=== PATIENT | male | born 1970 | race Caucasian/White ===

== ENCOUNTER 2021-11-06 08:09 | Day surgery (SDC) | payer BC ==
[2021-11-03 15:39] VITALS: BMI 27.9
[2021-11-06] MEDS ORDERED: LIDOCAINE HCL 2% 100 MG/5 ML DISP.SYRIN ONE (09:30)
[2021-11-06] MEDS ORDERED: PROPOFOL 20 ML ONE (09:31)
[2021-11-06] MEDS ORDERED: MIDAZOLAM HCL 2 MG/2 ML SINGLE DOSE VIAL ONE (09:32)
[2021-11-06] MEDS ORDERED: BUPIVACAINE HCL/PF 2.5 MG/ML - 30 ML VIAL IJ ONE (09:48)
[2021-11-06] MEDS ORDERED: KETOROLAC TROMETHAMINE 30 MG/1 ML VIAL ONE (10:02)
[2021-11-06] MEDS ORDERED: DEXAMETHASONE SOD PHOSPHATE 4 MG/1 ML VIAL ONE (10:02)
[2021-11-06] MEDS ORDERED: ONDANSETRON 4 MG/2 ML VIAL ONE (10:02)
[2021-11-06] MEDS ORDERED: ceFAZolin SODIUM 1 GM VIAL ONE (10:02)
[2021-11-06] MEDS ORDERED: ONDANSETRON 4 MG/2 ML VIAL IVPUSH PRN (10:43)
[2021-11-06] MEDS ORDERED: oxyCODONE HCL 5 MG TABLET PO PRN ×2 (10:43)
[2021-11-06] MEDS ORDERED: PROMETHAZINE HCL 25 MG/1 ML VIAL IVPUSH PRN (10:43)
[2021-11-06] MEDS ORDERED: LACTATED RINGERS SOLUTION 1,000 ML IV SCH (10:45)
[2021-11-06 11:47] VITALS: RESP 20; TEMP 97.4
[2021-11-06 12:06] VITALS: BP 120/69; PULSE 60
== END 2021-11-06 12:05 | disposition home or self-care (01) ==
LOC: FASU 08:09
PROVIDERS: ATTEND Orthopaedic Surgery
PROC: 0SBD4ZZ Excision of Left Knee Joint, Percutaneous Endoscopic Approach (ICD-10-PCS; principal; 2021-11-06 10:14)
DX: S83.242A Other tear of medial meniscus, current injury, left knee, initial encounter (principal); S83.282A Other tear of lateral meniscus, current injury, left knee, initial encounter; S83.8X2A Sprain of other specified parts of left knee, initial encounter; M65.862 Other synovitis and tenosynovitis, left lower leg; X58.XXXA Exposure to other specified factors, initial encounter; Y93.9 Activity, unspecified; Y92.9 Unspecified place or not applicable
CPT/HCPCS: 94760